=== PATIENT | female | born 1985 | race Caucasian/White ===

== ENCOUNTER 2018-05-07 21:35 | Emergency (ER) | payer MEDICAID, OTHER ==
[~2018-05-07] VITALS: Ht 172.7 cm; Wt 74.8 kg
[2018-05-07 21:47] VITALS: BP 130/76
[2018-05-07] MEDS: KETOROLAC TROMETH 60MG/2ML VIAL IM ONE (22:15)
[2018-05-07] MEDS: HYDROcodone-ACET 10/325MG TAB PO ONE (22:15)
== END 2018-05-07 22:40 | disposition home or self-care (01) ==
LOC: EDBD 21:35 → ER 21:43
DX: S93.401A Sprain of unspecified ligament of right ankle, initial encounter (principal); J45.909 Unspecified asthma, uncomplicated; X58.XXXA Exposure to other specified factors, initial encounter; Y93.89 Activity, other specified; Y92.89 Other specified places as the place of occurrence of the external cause; Y99.8 Other external cause status
CPT/HCPCS: 73600; 99284; J1885

== ENCOUNTER 2018-05-08 15:37 | Emergency (ER) | payer MEDICAID ==
[~2018-05-08] VITALS: Ht 172.7 cm; Wt 97.5 kg
[2018-05-08 15:52] VITALS: BP 124/80
== END 2018-05-08 16:57 | disposition home or self-care (01) ==
LOC: ER 15:42
DX: S93.401A Sprain of unspecified ligament of right ankle, initial encounter (principal); J45.909 Unspecified asthma, uncomplicated; W01.0XXA Fall on same level from slipping, tripping and stumbling without subsequent striking against object, initial encounter; Y93.01 Activity, walking, marching and hiking; Y92.89 Other specified places as the place of occurrence of the external cause; Y99.8 Other external cause status